=== PATIENT | male | born 1980 | race Caucasian/White ===

== ENCOUNTER → 2021-03-31 15:41 | Outpatient (REF) | payer OTHER, SELFPAY ==
--- NOTE | ~2021-03-31 | XR_ITS ---
EXAMINATION: XR SHOULDER, RIGHT CLINICAL INFORMATION: Fall, trauma, pain COMPARISON: None TECHNIQUE: Right shoulder is imaged in 4 views. FINDINGS: There is no fracture or dislocation. Bony density appears normal. The glenohumeral joint is unremarkable. The acromioclavicular alignment is normal. There are no visible rotator cuff calcifications. Right lung apex shows no pneumothorax or pleural reaction. XR/XR shoulder RT min 2V IMPRESSION: Normal right shoulder.
--- NOTE | ~2021-03-31 | XR_ITS ---
EXAMINATION: XR CERVICAL SPINE CLINICAL INFORMATION: Fall, trauma, neck pain COMPARISON: None TECHNIQUE: 3 views of the cervical spine were obtained. FINDINGS: There is straightening cervical lordosis with mild leftward tilting which may related to muscle spasm. The vertebral bodies are normal in height and there is no cervical vertebral compression, visible fracture, disc narrowing, spondylolisthesis, or prevertebral soft tissue swelling. No perched facet. The odontoid appears intact. There is an incidental small bone island posterior spinous process C4. XR/XR cervical spine 3V IMPRESSION: 1. Straightening cervical lordosis with mild leftward tilting which may be related to muscle spasm. 2. Otherwise unremarkable exam.
== END ==
LOC: HO.SL 15:41
PROVIDERS: PCP Internal Medicine; Visit Provider Internal Medicine
DX: M25.511 Pain in right shoulder (principal); M54.2 Cervicalgia; G47.9 Sleep disorder, unspecified
CPT/HCPCS: 72040; 73030; 95806

== ENCOUNTER 2021-04-25 07:19 | Outpatient (REF) | payer OTHER, SELFPAY ==
--- NOTE | ~2021-04-25 | MR_ITS ---
EXAMINATION: MR CERVICAL SPINE WITHOUT CONTRAST CLINICAL INFORMATION: 40-year-old with right-sided cervical root neuropathy. COMPARISON: 03/31/2021 x-rays. TECHNIQUE: MRI of the cervical spine was obtained using routine sequences without contrast. FINDINGS: VERTEBRAL BODIES AND PARASPINAL SOFT TISSUES: Normal. FINDINGS: Alignment: Straightening of the cervical spine is noted similar to previous x-rays. No spondylolisthesis or retrolisthesis. Craniocervical Junction/C1-C2 Articulations: Intact and aligned. Visualized Intracranial Structures: Within normal limits. Vertebral Bodies: Normal height. Disc Spaces and Endplates: The intervertebral disc space heights are well maintained. No significant spondylosis. Endplates appear intact. Bone Marrow: No significant marrow-replacing process or bone marrow edema. Spinal Canal: Mild diffuse developmental spinal canal stenosis is noted. For example, the maximum AP diameter of the canal at the C5 level is 6 to 7 mm. C2-C3: No disc herniation, DJD, canal or neuroforaminal stenosis. C3-C4: No disc herniation. Minor uncovertebral spurring on the left. No significant facet arthrosis, canal or neuroforaminal stenosis. C4-C5: Minimal shallow central disc protrusion noted with slight flattening of the central dural sac without cord impingement. Mild, predominantly developmental spinal canal stenosis at this level. No significant DJD or neuroforaminal stenosis. C5-C6: Broad-based central disc protrusion noted, with the flattening of the central portion of the anterior thecal sac, with slight ventral cord deformity of the midline without yvette cord impingement. [id number] central spinal canal stenosis is noted. Mild facet arthropathy on the right and minor bilateral uncinate process spurring noted with mild left-sided and moderate right-sided neural foraminal stenosis. C6-C7: Shallow central to right paramedian disc protrusion noted with slight flattening of the ventral dural sac without cord impingement. Ligamentum flavum thickening is noted with no significant spinal canal stenosis. There is uncovertebral spurring without significant facet arthropathy and no significant neural foraminal stenosis. C7-T1: No disc herniation and no significant DJD, canal or neural foraminal stenosis. The cervical and visualized upper thoracic spinal cord is normal in signal intensity throughout, without focal lesion, edema or syrinx. MR/MR cervical spine wo con IMPRESSION: 1. Straightening of the cervical spine similar to previous x-ray. 2. Mild developmental cervical spinal canal stenosis as described above. 3. Central disc protrusions at C4-C5, C5-C6 and C6-C7 without yvette cord impingement, with slight ventral cord deformity at C5-C6 and [id number] central spinal canal stenosis. Suspect slight ventral spinal cord volume loss at this level. 4. Uncovertebral spurring and facet arthropathy at C5-C6 with moderate right-sided and mild left-sided neural foraminal stenosis at this level.
== END 2021-04-25 07:20 | disposition home or self-care (01) ==
LOC: HO.MRI 07:19
PROVIDERS: Visit Provider Internal Medicine
DX: G54.2 Cervical root disorders, not elsewhere classified (principal)
CPT/HCPCS: 72141